=== PATIENT | female | born 1960 | race Caucasian/White ===

== ENCOUNTER 2020-01-22 14:21 | Emergency (ER) | payer BC ==
[~2020-01-22] VITALS: Ht 160 cm; Wt 86.2 kg
[2020-01-22] MEDS ORDERED: TOPROL XL100 MG PO (14:32)
[2020-01-22] MEDS ORDERED: NORCO 5-325 TA1 EAC2 PO (16:07)
[2020-01-22] MEDS ORDERED: VOLTAREN GEL 1100 G2 TOP (16:16)
[2020-01-22 16:22] VITALS: BP 147/59
== END 2020-01-22 16:26 | disposition home or self-care (01) ==
LOC: ER 14:21
DX: M25.561 Pain in right knee (principal); I10 Essential (primary) hypertension; Z79.899 Other long term (current) drug therapy